=== PATIENT | female | born 1950 | race Hispanic/Latino ===

== ENCOUNTER 2024-06-07 18:35 | Emergency (ER) | payer SELFPAY, OTHER ==
[2024-06-07] MEDS ORDERED: Acetaminophen 500 MG TAB ONE (19:21)
== END 2024-06-07 23:19 | disposition home or self-care (01) ==
LOC: ERS 18:35
DX: M25.552 Pain in left hip (principal); R10.9 Unspecified abdominal pain; I10 Essential (primary) hypertension; I48.91 Unspecified atrial fibrillation; V89.2XXA Person injured in unspecified motor-vehicle accident, traffic, initial encounter
CPT/HCPCS: 72170; 93005; 99284